=== PATIENT | female | born 2000 | race Hispanic/Latino ===

== ENCOUNTER 2022-10-11 21:58 | Emergency (ER) | payer MEDICAID, OTHER ==
[~2022-10-11] VITALS: Ht 160 cm; Wt 129.7 kg
[2022-10-12] MEDS ORDERED: LIDOCAINE HCL 1% 20 ML VIAL INJ STA (02:05)
[2022-10-12] MEDS ORDERED: DIPH,PERTUSS(ACELL),TET VAC/PF 0.5 ML VIAL IM ONE (02:30)
[2022-10-12] MEDS ORDERED: CEPH500B PO (03:16)
[2022-10-12] MEDS ORDERED: IBUP-1493 PO (03:16)
[2022-10-12 03:28] VITALS: BP 134/64; PULSE 80; RESP 16; O2SAT 99
== END 2022-10-12 03:35 | disposition home or self-care (01) ==
LOC: EDH 21:58
DX: S61.012A Laceration without foreign body of left thumb without damage to nail, initial encounter (principal); F17.200 Nicotine dependence, unspecified, uncomplicated; J45.909 Unspecified asthma, uncomplicated; W26.0XXA Contact with knife, initial encounter; Y93.89 Activity, other specified; Y92.89 Other specified places as the place of occurrence of the external cause; Y99.8 Other external cause status
CPT/HCPCS: 12002; 73130; 90471; 90715